=== PATIENT | female | born 1975 | race Two or more races ===

== ENCOUNTER 2016-08-06 20:05 | Emergency (ER) | payer SELFPAY ==
[~2016-08-06 20:05] MED LIST: AMOXIL500 MG PO; BACTRIM DS TAB1 EAC2 PO; FAMOTIDINE20 M2 PO; FLEXIRIL; LEVOTHROID75 MCG; LEVOTHROID75 MCG PO; MONONESSA1 TAB PO; PRILOSEC20 M1 PO; SERTRALINE HCL PO; SERTRALINE HCL100 M2 PO; SERTRALINE HCL50 M4 PO
[2016-08-06] MEDS ORDERED: ZOLOFT50 M1 PO (21:57)
[2016-08-06 22:30] LABS: URINE APPEARANCE HAZY; URINE BILIRUBIN NEGATIVE (NEG); URINE BLOOD NEGATIVE (NEG); URINE COLOR YELLOW; URINE GLUCOSE (UA) NEGATIVE (NEG); URINE KETONE NEGATIVE (NEG); URINE LEUKOCYTE ESTERASE POSITIVE (NEG); URINE NITRITE NEGATIVE (NEG); URINE PROTEIN NEGATIVE (NEG); URINE SPECIFIC GRAVITY 1.025 (1.003-1.030)
[2016-08-06 22:37] LABS: URINE MUCUS 1+; URINE RBC 0-2 /[HPF] (0-5)
[2016-08-06] MEDS ORDERED: AUGMENTIN 875-1 EAC2 PO (23:03)
== END 2016-08-06 23:09 ==
LOC: EDMED 20:05
PROVIDERS: Emergency Medicine
DX: J32.9 Chronic sinusitis, unspecified (principal); E03.9 Hypothyroidism, unspecified